=== PATIENT | male | born 1970 | race Caucasian/White ===

== ENCOUNTER 2019-11-23 00:01 | Emergency (ER) | payer OTHER ==
[~2019-11-23] VITALS: Ht 182.9 cm; Wt 95.3 kg
[~2019-11-23 00:01] MED LIST: NOHOMEMEDICATIONS; ZOFRAN ODT4 MG PO
[2019-11-23] MEDS ORDERED: TRI MIX 150 MG INJECTION (00:15)
[2019-11-23 00:52] LABS: ABSOLUTE BASOPHILS 0.1 thou/uL (0.0-0.2); ABSOLUTE EOSINOPHILS 0.1 thou/uL (0.0-0.7); ABSOLUTE LYMPHOCYTES 2.5 thou/uL (0.8-5.3); ABSOLUTE MONOCYTES 0.8 thou/uL (0.0-1.2); ABSOLUTE NEUTROPHILS 8.2 thou/uL (1.6-8.1); BASOPHILS 0.8 %; EOSINOPHILS 0.9 %; HEMATOCRIT 45.7 % (42.0-52.0); HEMOGLOBIN 15.8 gm/dL (14.0-18.0); LYMPHOCYTES 21.6 %; MCH 28.3 pg (26.0-34.0); MCHC 34.6 g/dL (28.0-37.0); MCV 81.9 fL (80.0-100.0); MONOCYTES 6.9 %; MPV 7.9 fl. (7.2-11.1); NUCLEATED RBCS 0 /100WBC; PLATELET COUNT* 240 thou/uL (150-400); POLYS 69.8 %; RBC 5.58 mil/uL (4.50-6.00); RDW-CV 14.5 % (10.5-14.5); WBC 11.7 thou/uL (4.0-11.0)
[2019-11-23 01:20] LABS: CALCIUM 8.4 mg/dL (8.5-10.1); CREATININE 1.1 mg/dL (0.6-1.3); POTASSIUM 3.1 mmol/L (3.5-5.1)
[2019-11-23 01:25] LABS: ALBUMIN 3.9 g/dL (3.4-5.0); TOTAL BILIRUBIN 0.9 mg/dL (<0.1-1.0); TOTAL PROTEIN 7.9 g/dL (6.4-8.2)
[2019-11-23 02:50] VITALS: BP 133/99
--- NOTE | 2019-11-23 10:18 | EKG ---
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1970 Requested By: Pricilla Ackerman Order Number: [id number] MD: Kristian Glover Measurements Intervals [place] Rate: 156 P: [place]: QRS: -61 QRSD: 96 T: 120 QT: 353 QTc: 569 Interpretive Statements Atrial flutter with predominant 2:1 AV block Left anterior fascicular block Abnormal R-wave progression, early transition LVH with secondary repolarization abnormality Prolonged QT interval No previous ECG available for comparison Electronically Signed On 11-23-2019 10:17:02 CDT by Kristian Glover [email or web address] <ELECTRONICALLY SIGNED> By: Kristian Glover MD, FAC 11/23/19 1017 0030 0030 Kristian Glover MD, [facility] /EPI
--- NOTE | 2019-11-23 10:19 | EKG ---
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
--- NOTE | 2019-11-23 14:10 | EKG ---
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1970 Requested By: Pricilla Ackerman Order Number: [id number] Marge MD: Kristian Glover Measurements Intervals [place] Rate: 151 P: 54 VA: 108 QRS: -57 QRSD: 110 T: 209 QT: 363 QTc: 576 Interpretive Statements Supraventricular tachycardia Abnormal R-wave progression, early transition LVH with IVCD, LAD and secondary repol abnrm Prolonged QT interval Compared to ECG 11/23/2019 00:41:53 no change Electronically Signed On 11-23-2019 14:08:56 CDT by Kristian Glover [email or web address] <ELECTRONICALLY SIGNED> By: Kristian Glover MD, [facility] 11/23/19 1408 0043 0043 Kristian Glover MD, [facility] /EPI
--- NOTE | 2019-11-23 14:11 | EKG ---
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 : 1970 Requested By: Pricilla Ackerman Order Number: [id number] Marge MD: Kristian Glover Measurements Intervals [place] Rate: 121 P: [place]: QRS: -48 QRSD: 98 T: 97 QT: 338 QTc: 480 Interpretive Statements Atrial fibrillation LAD, consider left anterior fascicular block Abnormal R-wave progression, late transition LVH with secondary repolarization abnormality Borderline prolonged QT interval Compared to ECG 11/23/2019 00:41:53 atrial fibrillation now noted Electronically Signed On 11-23-2019 14:09:59 CDT by Kristian Glover [email or web address] <ELECTRONICALLY SIGNED> By: Kristian Glover MD, [facility] 11/23/19 1409 9 Kristian Glover MD, [facility] /EPI
== END 2019-11-23 02:50 | disposition left against medical advice (07) ==
LOC: M.ERS 00:01
PROVIDERS: Personal Emergency Response Attendant
DX: N48.30 Priapism, unspecified (principal); I48.91 Unspecified atrial fibrillation; I48.92 Unspecified atrial flutter